=== PATIENT | female | born 1960 | race African-American/Black ===

== ENCOUNTER → 2018-08-13 | Outpatient (CLI) | payer OTHER ==
[~2018-08-13] MED LIST: CIPROFLOXACIN500 M1 PO; EXFORGE 10-1601 EACH PO; EXFORGE OR; FENOFIBRATE145 M1 PO; FISH OIL 1,001000 M2 PO; HYDROCHLOROTHIA25 M1 PO; INVOKANA100 MG PO; JANUVIA100 MG PO; LORTAB 5 MG/5001 TAB PO; NORCO 5-325 TA1 EACH PO; PINDOLOL10 MG PO; PRILOSEC40 MG PO; SINUS MEDS; ULORIC80 MG PO; VITAMIN D1000 UNI1 PO
== END ==
LOC: RAD 14:31
DX: Z12.31 Encounter for screening mammogram for malignant neoplasm of breast (principal)

== ENCOUNTER → 2019-10-28 | Outpatient (CLI) | payer OTHER | LOC: RAD 14:54 | DX: Z12.31 Encounter for screening mammogram for malignant neoplasm of breast (principal) ==

== ENCOUNTER → 2020-02-03 | Outpatient (CLI) | payer OTHER ==
[~2020-02-03] MED LIST changes: +AMARYL2 M1 PO; +ASPIRIN325 PO; +EFFIENT10 MG PO; +GLYXAMBI 25 MG1 EACH PO; +LIPITOR40 MG PO; +TRAMADOL 50 MG50 MG PO
== END ==
LOC: SJCVCIMAG 08:00
PROVIDERS: ATTEND Internal Medicine Cardiovascular Disease
DX: Z01.810 Encounter for preprocedural cardiovascular examination (principal); I49.1 Atrial premature depolarization; I10 Essential (primary) hypertension; E78.5 Hyperlipidemia, unspecified; E11.9 Type 2 diabetes mellitus without complications; F17.200 Nicotine dependence, unspecified, uncomplicated; Z79.899 Other long term (current) drug therapy

== ENCOUNTER 2020-02-06 06:40 | Observation (INO) | payer OTHER ==
[~2020-02-06] VITALS: Ht 157.5 cm; Wt 92.0 kg
[~2020-02-06 06:40] MED LIST changes: -AMARYL2 M1 PO; -ASPIRIN325 PO; -EFFIENT10 MG PO; -GLYXAMBI 25 MG1 EACH PO; -LIPITOR40 MG PO; -TRAMADOL 50 MG50 MG PO
[2020-02-06 07:31] VITALS: BP 114/56
[2020-02-06] MEDS ORDERED: TRAMADOL 50 MG50 MG PO (07:54)
[2020-02-06] MEDS ORDERED: GLYXAMBI 25 MG1 EACH PO (07:55)
[2020-02-06] MEDS ORDERED: AMARYL2 M1 PO (07:56)
[2020-02-06 08:13] LABS: CALCIUM 9.8 mg/dL (8.5-10.1); CREATININE 1.1 mg/dL (0.6-1.0); POTASSIUM 3.4 mmol/L (3.5-5.1)
--- NOTE | 2020-02-06 10:40 | NUR ---
REPORT FROM MARAL FALLON
[2020-02-06 13:23] VITALS: BP 106/68
--- NOTE | 2020-02-06 13:46 | CATHLAB ---
[facility] [address] [place] [address] INVASIVE PROCEDURE REPORT Name: ODALIS CM [id number] Admission: 02/06/20 Attend Phys: Dylan Gray MD Discharge: Date of : 60 Report #: [id number] THIS REPORT FOR: cc: Neal Silveira MD, Neal A. MD Park, Jin S. MD ~ APPROVED REPORT Study performed: 02/06/2020 07:50:29 Patient Details Patient Status: Out-Patient Room #: The patient is a 59 year-old female Event Personnel Dylan Gray Anaesthetic Technician, Gavino Angela RN RN, Dat Swanson RTR Enrico Wallace Sherra RTR Monitor Procedures Performed Art Access - R radial artery Left Heart Cath w/or w/o Coronaries 9259188 [facility] GAUD[facility] Place w/wo Plasty Single LAD 987607 59830 Initial Mod Sed Same Phys/QHP Gr5y 606906 59144 Mod Sed Same Phys/QHP Ea 016013 Hemostasis with Hemoband Indication Positive stress test, Pre-op clearance Risk Factors Hypercholesterolemia, Hypertension, Diabetes Tobacco History () Procedure Narrative The Right Wrist^ was infiltrated with 1% Lidocaine subcutaneous anesthesia. A TRANSRADIAL SLENDER 6F GLIDESHEATH KIT #[id number] sheath was inserted into the Right Radial Artery^. Coronary angiography was performed using coronary diagnostic catheters. The right coronary system was accessed and visualized with a JR4 catheter. The left coronary system was accessed and visualized with a JL 3.5 catheter. The left ventricle was accessed and visualized with a JR4 catheter. Closure device was deployed with a Fr VASC BAND R 24CM #[id number]. The patient tolerated the procedure well and there were no complications associated with the procedure. There was no hematoma. Intraoperative Conscious Sedation [facility] [place] [address] INVASIVE PROCEDURE REPORT Name: ODALIS CM Room #: 200-I [facility] [place] ..#: [id number] Admission: 02/06/20 Attend Phys: Dylan Gray MD Discharge: Date of : 60 Report #: [id number] Sedation start time: 829 Case end Time: 940 Fentanyl 200 mcg Versed 4 mg Fluoro Time: 12.30 minutes Dose: DAP 37126.00 cGycm2 1748 mGy Contrast Type and Amount: Omnipaque 175 ml Coronary Angiography The patient's coronary anatomy is left dominant. Diagnostic Cath Left Main Left main artery is a large caliber vessel, with no flow-limiting lesions. LAD The LAD is a moderate to large caliber vessel, traverses the anterior wall and wraps around the apex. It terminates in the mid segment of the inferior wall, supplying the mid to apical inferior wall. There is a severe occlusion of the proximal segment of the LAD, 90%. Diagonal 1 This is a small to moderate-sized caliber vessel, with no flow-limiting lesions. Diagonal 2 This is a moderate-sized caliber vessel, patent with no flow-limiting lesions. Circumflex The left circumflex artery is a moderate to large caliber vessel, dominant and supplying the left PDA. OM1 This is a patent vessel, with no flow-limiting lesions. OM2 This is a moderate-sized caliber vessel, supplies several branches. This vessel is patent with a mild stenosis proximally. L ESTEE This is a patent vessel, with no flow-limiting lesions. Terminates at the junction of the basal to mid inferior wall. Right Coronary This is a small, nondominant vessel with a modest stenosis proximally. Left Ventriculography Left Ventriculography was not performed. Ejection Fraction was 55-60% based off patient's Nuclear Cardiac Stress Test. An LVEDP was measured and there is no gradient across the outflow tract. Hemodynamics The aortic pressure is 108/65 mmHg with a mean of 83 mmHg. The left ventricular pressure is 122/9 mmHg with a mean of mmHg. The left ventricular end diastolic pressure is 24 mmHg. PCI Technique Lesion Percutaneous coronary intervention was performed on the proximal left [facility] [address] [place] [address] INVASIVE PROCEDURE REPORT Name: TOIODALISBALDEMAR ELIZABETH Room #: 200-I [facility] [place] ..#: [id number] Admission: 02/06/20 Attend Phys: Dylan Gray MD Discharge: Date of : 60 Report #: [id number] anterior descending artery segment. The lesion stenosis prior to intervention was 90% with COLE 3 flow. A VISTA 6FR XB 3.5 #[id number] Guide Catheter was used to engage the ostium. A Luge Wire .014 x 182CM #[id number] Interventional Guidewire was used to cross the lesion. BALLOON DILATION A Balloon catheter Euphora RX 2.5 x 12 #[id number] was inserted and inflated up to 8.00atm for 16seconds. STENT DEPLOYMENT A drug-eluting stent XIENCE JESUS RX 3.25 X 23 #[id number] was inserted and inflated up to 16.00atm for 27seconds. POST STENT DEPLOYMENT BALLOON DILATION A Balloon catheter TREK NC RX 3.5 X 12 #[id number] was inserted and inflated up to 14.00atm for 15seconds. Additional Inflation: 18.00atm for 15seconds. Final angiography reveals 0 % stenosis with COLE 3 flow. Conclusion 1. Successful insertion of a drug-eluting stent into the proximal LAD stenosis. 2. Left dominant system, moderate-sized OM2 vessel with mild disease. 3. Normal LV systolic function. 4. Recommend dual antiplatelet therapy for 3 months and risk factor management. <ELECTRONICALLY SIGNED> By: Dylan Gray MD 02/06/20 1346 134 Dylan Gray MD /INF
--- NOTE | 2020-02-06 15:51 | NUR ---
ASSUMED CARE OF PATIENT AT 1257. PATIENT HAS A RIGHT RADIAL SITE WITH WRIST BAND ON. WRITE BAND REMOVED AT 1400 AND REPLACED WITH A TEGADERM. AREA FREE OF BLOOD, HEMATOMA OR EDEMA. POST VITALS SHEET COMPLETED AND PLACED IN CHART. PATIENT DENIES ANY PAIN OR DISCOMFORT. CONTINUE PLAN OF CARE.
[2020-02-06 19:48] VITALS: BP 99/64
[2020-02-07 00:29] VITALS: BP 117/67
--- NOTE | 2020-02-07 03:15 | NUR ---
ASSESSMENTS CHARTED, MEDS CHARTED GIVEN. PATIENT WENT TO THE [facility]IDE [employer] [facility] TODAY HAD A RIGHT RADIAL APPROACH AND A NEW STENT TO HER LAD. PATIENT IS UP WITH STANDBY ASSIST IN ROOM. RECEIVED 1 LITER OF MAINTENANCE FLUIDS THEN DC'D. HAS ONE LITER NC FOR COMFORT. ACHS ON LOW SSI, NO COVERAGE WAS NEEDED AT HS. DUE TO NEW STENT HER HIP SURGERY WILL BE DELAYED 3 [address]S. FALL PRECAUTIONS IN PLACE DURING SHIFT.
[2020-02-07 04:10] VITALS: BP 99/51
[2020-02-07 05:47] LABS: HEMATOCRIT 37.7 % (37.0-47.0); MCH 28.7 pg (26.0-34.0); MCHC 31.9 g/dL (28.0-37.0); RBC 4.19 mil/uL (4.20-5.00); RDW 14.8 % (10.5-14.5); WBC 7.9 thou/uL (4.0-11.0)
[2020-02-07 06:03] LABS: ALBUMIN 3.5 g/dL (3.4-5.0); CALCIUM 9.4 mg/dL (8.5-10.1); CREATININE 1.1 mg/dL (0.6-1.0); POTASSIUM 3.6 mmol/L (3.5-5.1); TOTAL BILIRUBIN 0.3 mg/dL (0.2-1.0)
[2020-02-07] MEDS ORDERED: LIPITOR40 MG PO (07:13)
[2020-02-07] MEDS ORDERED: EFFIENT10 MG PO (07:13)
[2020-02-07] MEDS ORDERED: ASPIRIN325 PO (07:13)
--- NOTE | 2020-02-07 07:57 | EKG ---
[facility] [place] [address] ELECTROCARDIOGRAM REPORT Name: ODALIS CM Room #: 200-I [facility] M.R.#: [id number] Admission: 02/06/20 Attend Phys: Dylan Gray MD Discharge: Date of : 60 Report #: [id number] THIS REPORT FOR: cc: Neal Silveira MD, Neal A. MD Lundgren,Brown Olivo MD [facility] ~ THIS REPORT FOR: //name// [facility] Test Date: 2020-02-07 Test Time: 06:59:24 Pat Name: ODALIS CM Department: Room: 200 I Gender: F Renal Nurse: QUINTIN : 1960 Requested By: Julissa Peter Order Number: [id number] MD: Brown Brown Measurements Intervals [place] Rate: 81 P: 62 VT: 150 QRS: 24 QRSD: 83 T: 17 QT: 384 QTc: 446 Interpretive Statements Sinus rhythm Poor R wave progression Compared to ECG 09/16/2014 12:46:59 No significant change was found Electronically Signed On 02-07-2020 7:57:15 CDT by Brown Brown [email or web address] <ELECTRONICALLY SIGNED> By: Brown Brown MD, [facility] 02/07/20 0757 [phone] Brown Brown MD, [facility] /EPI
[2020-02-07 08:00] VITALS: BP 124/90
--- NOTE | 2020-02-07 08:24 | NUR ---
ASSUMED CARE OF PT AT SHIFT CHANGE, A&0X4, UP AD LM SAFELY, NO B/P ON R ARM, NO LIMB ALERT ON R ARM AND WILL PLACE BAND NO B/PS ON RIGHT. POSSIBLE D/C THIS A.M. EDUCATION GIVEN ON DISMISSAL AND TIME NEEDED FOR ALL TO SEE WELL ANY DIAGNOSTICS TO BE DONE. GOOD APPETITE, SEE SEPARATE INTERVENTIONS FOR ASSESSMENTS
[2020-02-07 09:28] VITALS: BP 99/51
== END 2020-02-07 10:20 | disposition home or self-care (01) ==
LOC: CATH 06:40 → 2N 12:39 → CATH 12:39 → 2N 02-07 10:20
PROVIDERS: Nurse Practitioner; ADMIT Internal Medicine Cardiovascular Disease; ATTEND Internal Medicine Cardiovascular Disease
DX: I25.10 Atherosclerotic heart disease of native coronary artery without angina pectoris (principal); I10 Essential (primary) hypertension; E78.5 Hyperlipidemia, unspecified; E11.9 Type 2 diabetes mellitus without complications; F17.200 Nicotine dependence, unspecified, uncomplicated; Z71.6 Tobacco abuse counseling

== ENCOUNTER → 2020-04-22 | Outpatient (CLI) | payer OTHER ==
[~2020-04-22] MED LIST changes: +AMARYL2 M1 PO; +ASPIRIN325 PO; +EFFIENT10 MG PO; +GLYXAMBI 25 MG1 EACH PO; +LIPITOR40 MG PO; +TRAMADOL 50 MG50 MG PO
== END ==
LOC: SJCVCIMAG 13:59
PROVIDERS: ATTEND Internal Medicine Cardiovascular Disease
DX: I08.8 Other rheumatic multiple valve diseases (principal); I25.10 Atherosclerotic heart disease of native coronary artery without angina pectoris; E78.2 Mixed hyperlipidemia; I10 Essential (primary) hypertension; E11.9 Type 2 diabetes mellitus without complications; F17.200 Nicotine dependence, unspecified, uncomplicated; Z79.4 Long term (current) use of insulin; Z78.0 Asymptomatic menopausal state

== ENCOUNTER → 2021-03-19 | Outpatient (CLI) | payer BC, OTHER | LOC: BC 11:00 | PROVIDERS: ATTEND Family Medicine | DX: Z12.31 Encounter for screening mammogram for malignant neoplasm of breast (principal) ==